=== PATIENT | female | born 1990 | race Caucasian/White ===

== ENCOUNTER 2018-07-30 15:17 | Emergency (ER) | payer MEDICAID ==
[~2018-07-30] VITALS: Ht 154.9 cm; Wt 76.0 kg
[2018-07-30] MEDS ORDERED: ONDANSETRON 4MG ODT PO ONE (18:30)
[2018-07-30] MEDS ORDERED: ACETAMINOPHEN 650MG/20.3ML UDC PO ONE (20:00)
[2018-07-30] MEDS ORDERED: METOCLOPRAMIDE HCL 10MG/2ML VIAL IV ONE (23:00)
[2018-07-30] MEDS ORDERED: DIPHENHYDRAMINE 50MG/ML VIAL IV ONE (23:00)
[2018-07-31 00:03] VITALS: BP 110/74
== END 2018-07-31 00:05 | disposition home or self-care (01) ==
LOC: ER 15:17
DX: O9A.211 Injury, poisoning and certain other consequences of external causes complicating pregnancy, first trimester (principal); S09.8XXA Other specified injuries of head, initial encounter; S06.0X0A Concussion without loss of consciousness, initial encounter; Z3A.01 Less than 8 weeks gestation of pregnancy; Z90.49 Acquired absence of other specified parts of digestive tract; Y08.89XA Assault by other specified means, initial encounter; Y93.89 Activity, other specified; Y92.89 Other specified places as the place of occurrence of the external cause; Y99.8 Other external cause status
CPT/HCPCS: 36415; 70450; 70486; 81025; 84702; 99284; J1200; Q0162; J2765